=== PATIENT | male | born 1985 | race Caucasian/White ===

== ENCOUNTER 2019-10-24 02:02 | Emergency (ER) | payer BC ==
[2019-10-24 02:11] VITALS: RESP 18; TEMP 98.2
[2019-10-24] MEDS ORDERED: SODIUM CHLORIDE 0.9% 1,000 ML IV STA ×2 (02:16)
--- NOTE | 2019-10-24 02:21 | ED ---
Dizziness HPI - General Chief Complaint: Syncope Stated Complaint: near syncope Time Seen by Provider: 10/24/19 02:16 Source: patient, EMS, RN notes reviewed, old records reviewed Mode of arrival: EMS Limitations: no limitations - History of Present Illness Initial Comments: This is a 33-year-old male DF for evaluation patient presents today for evaluat ion of syncopal event. Patient has no nausea vomiting felt weak and diarrhea. Not feeling well. Patient denying any symptoms currently but states he felt weak and lightheaded all watching TV when upstairs and passed out for his EMS was called. Patient any headache chest pain shortness breath or abdominal pain. He does have history of seizure but that was due to a head injury no seizure medications no recurrent seizures, no seizure-like activity grace VALDEZ Complaint: dizziness, lightheadedness -: minutes(s) Timing: gradual onset Description: lightheadedness, nausea History of Same: No History of Trauma: Yes Severity: moderate Improves With: remaining still Worsens With: movement, exertion Associated Symptoms: malaise, weakness - Related Data Allergies Allergy/AdvReac Type Severity Reaction Status Date / Time No Known Allergies Allergy Verified 10/24/19 02:20 Review of Systems ROS Statement: Those systems with pertinent positive or pertinent negative responses have been documented in the HPI. ROS Other: All systems not noted in ROS Statement are negative. Past Medical History Past Medical History: Seizure Disorder History of Any Multi-Drug Resistant Organisms: None Reported Past Surgical History: Appendectomy Past Psychological History: No Psychological Hx Reported Smoking Status: Current every day smoker Past Alcohol Use History: Rare Past Drug Use History: Marijuana General Exam Limitations: no limitations General appearance: alert, in no apparent distress Head exam: Present: atraumatic, normocephalic, normal inspection Eye exam: Present: normal appearance, PERRL, EOMI. Absent: scleral icterus, conjunctival injection, periorbital swelling ENT exam: Present: normal exam, mucous membranes moist Neck exam: Present: normal inspection. Absent: tenderness, meningismus, lymphadenopathy Respiratory exam: Present: normal lung sounds bilaterally. Absent: respiratory distress, wheezes, rales, rhonchi, stridor Cardiovascular Exam: Present: regular rate, normal rhythm, normal heart sounds. Absent: systolic murmur, diastolic murmur, rubs, gallop, clicks GI/Abdominal exam: Present: soft, normal bowel sounds. Absent: distended, tenderness, guarding, rebound, rigid Extremities exam: Present: normal inspection, full ROM, normal capillary refill. Absent: tenderness, pedal edema, joint swelling, calf tenderness Back exam: Present: normal inspection Neurological exam: Present: alert, oriented X3, CN II-XII intact Psychiatric exam: Present: normal affect, normal mood Skin exam: Present: warm, dry, intact, normal color. Absent: rash Course Vital Signs 10/24/19 02:05 Temperature 98.2 F Pulse Rate 59 L Respiratory 18 Rate Blood Pressure 117/78 O2 Sat by Pulse 98 Oximetry - Reevaluation(s) Reevaluation #1: 10/24/19 03:06 Medical records reviewed Reevaluation #2: 10/24/19 03:06 Patient informed results feels well Reevaluation #3: 10/24/19 03:06 Patient states he feels good for discharge home EKG Findings - EKG Comments: EKG Findings:: EKG is sinus rhythm of 65, WI 134 QRS 78 QTc 451 Medical Decision Making - Medical Decision Making 33-year-old male with 2 days of nausea vomiting diarrhea dizziness syncopal event patient is no acute findings here in the emergency department feels better with IV hydration without complaint of headache chest pain shortness of breath or abdominal pain. Patient can be discharged home - Lab Data Result diagrams: 10/24/19 02:16 10/24/19 02:16 Lab Results 10/24/19 10/24/19 10/24/19 Range/Units 02:16 02:16 02:16 WBC 3.2 L (3.8-10.6) k/uL RBC 4.43 (4.30-5.90) m/uL Hgb 14.1 (13.0-17.5) gm/dL Hct 40.6 (39.0-53.0) % MCV 91.8 (80.0-100.0) fL MCH 31.8 (25.0-35.0) pg MCHC 34.7 (31.0-37.0) g/dL RDW 12.4 (11.5-15.5) % Plt Count 170 (150-450) k/uL PT 10.6 (9.0-12.0) sec INR 1.0 (<1.2) APTT 21.2 L (22.0-30.0) sec Sodium 138 (137-145) mmol/L Potassium 3.4 L (3.5-5.1) mmol/L Chloride 107 (98-107) mmol/L Carbon Dioxide 25 (22-30) mmol/L Anion Gap 6 mmol/L BUN 8 L (9-20) mg/dL Creatinine 0.66 (0.66-1.25) mg/dL Est GFR (CKD-EPI)AfAm >90 (>60 ml/min/1.73 sqM) Est GFR (CKD-EPI)NonAf >90 (>60 ml/min/1.73 sqM) Glucose 116 H (74-99) mg/dL Calcium 8.5 (8.4-10.2) mg/dL Phosphorus 3.1 (2.5-4.5) mg/dL Magnesium 2.0 (1.6-2.3) mg/dL Total Bilirubin 0.6 (0.2-1.3) mg/dL AST 34 (17-59) U/L ALT 28 (4-49) U/L Alkaline Phosphatase 51 (38-126) U/L Creatine Kinase 110 (55-170) U/L Troponin I (0.000-0.034) ng/mL Total Protein 6.5 (6.3-8.2) g/dL Albumin 4.1 (3.5-5.0) g/dL 10/24/19 Range/Units 02:16 WBC (3.8-10.6) k/uL RBC (4.30-5.90) m/uL Hgb (13.0-17.5) gm/dL Hct (39.0-53.0) % MCV (80.0-100.0) fL MCH (25.0-35.0) pg MCHC (31.0-37.0) g/dL RDW (11.5-15.5) % Plt Count (150-450) k/uL PT (9.0-12.0) sec INR (<1.2) APTT (22.0-30.0) sec Sodium (137-145) mmol/L Potassium (3.5-5.1) mmol/L Chloride (98-107) mmol/L Carbon Dioxide (22-30) mmol/L Anion Gap mmol/L BUN (9-20) mg/dL Creatinine (0.66-1.25) mg/dL Est GFR (CKD-EPI)AfAm (>60 ml/min/1.73 sqM) Est GFR (CKD-EPI)NonAf (>60 ml/min/1.73 sqM) Glucose (74-99) mg/dL Calcium (8.4-10.2) mg/dL Phosphorus (2.5-4.5) mg/dL Magnesium (1.6-2.3) mg/dL Total Bilirubin (0.2-1.3) mg/dL AST (17-59) U/L ALT (4-49) U/L Alkaline Phosphatase (38-126) U/L Creatine Kinase (55-170) U/L Troponin I <0.012 (0.000-0.034) ng/mL Total Protein (6.3-8.2) g/dL Albumin (3.5-5.0) g/dL Disposition Clinical Impression: Vasovagal syncope, Dehydration Disposition: HOME SELF-CARE Condition: Good Instructions (If sedation given, give patient instructions): Syncope (ED) Is patient prescribed a controlled substance at d/c from ED?: No Referrals: Madi Wells MD [Primary Care Provider] - 1-2 days
[2019-10-24 02:35] LABS: HCT 40.6 % (39.0-53.0); HGB 14.1 gm/dL (13.0-17.5); MCH 31.8 pg (25.0-35.0); MCHC 34.7 g/dL (31.0-37.0); MCV 91.8 fL (80.0-100.0); Mean Platelet Volume 8.5; Platelet Count 170 k/uL (150-450); RBC 4.43 m/uL (4.30-5.90); RDW 12.4 % (11.5-15.5); WBC 3.2 k/uL (3.8-10.6)
[2019-10-24 02:36] LABS: ALT 28 U/L (4-49); AST 34 U/L (17-59); African American GFR (CKD) >90 (>60 ml/min/1.73 sqM); Albumin 4.1 g/dL (3.5-5.0); Alkaline Phosphatase 51 U/L (38-126); Anion Gap 6 mmol/L; Blood Urea Nitrogen 8 mg/dL (9-20); Calcium 8.5 mg/dL (8.4-10.2); Carbon Dioxide 25 mmol/L (22-30); Chloride 107 mmol/L (98-107); Creatine Kinase 110 U/L (55-170); Glucose 116 mg/dL (74-99); Non-African American GFR(CKD) >90 (>60 ml/min/1.73 sqM); Phosphorus 3.1 mg/dL (2.5-4.5); Sodium 138 mmol/L (137-145); Total Bilirubin 0.6 mg/dL (0.2-1.3); Total Protein 6.5 g/dL (6.3-8.2)
[2019-10-24 02:37] LABS: Potassium 3.4 mmol/L (3.5-5.1)
[2019-10-24 02:43] LABS: Prothrombin Time 10.6 sec (9.0-12.0)
--- NOTE | 2019-10-24 02:51 | XR ---
EXAMINATION TYPE: XR chest 2V DATE OF EXAM: 10/24/2019 COMPARISON: NONE HISTORY: Syncope. Weakness TECHNIQUE: 2 views FINDINGS: Heart and mediastinum are normal. Lungs are clear. Diaphragm is normal. Bony thorax appears normal. IMPRESSION: Normal chest.
[2019-10-24 02:58] LABS: Partial Thromboplastin Time 21.2 sec (22.0-30.0)
[2019-10-24] MEDS ORDERED: NITROGLYCERIN SL TABS 0.4 MG TAB SUBLINGUAL PRN (03:04)
[2019-10-24] MEDS ORDERED: POTASSIUM BICARBONATE/CIT AC 20 MEQ TABLET.EFF PO ONE (03:04)
[2019-10-24 03:48] LABS: Band Neutrophils % 1 %; Eosinophils # (M) 0.06 k/uL (0-0.7); Lymphocytes # (M) 1.95 k/uL (1.0-4.8); Monocytes # (M) 0.13 k/uL (0-1.0); Neutrophils % (M) 32 %; Nucleated Red Blood Cells 0 /100 WBC (0-0); Total Cells Counted 100
[2019-10-24 04:06] VITALS: BP 117/75; PULSE 61
[2019-10-25] MEDS ORDERED: ASPIRIN 325 MG TAB PO SCH (09:00)
== END 2019-10-24 04:08 | disposition home or self-care (01) ==
LOC: EC 02:02
DX: R55 Syncope and collapse (principal); E86.0 Dehydration; F17.200 Nicotine dependence, unspecified, uncomplicated; Z90.89 Acquired absence of other organs; Z86.69 Personal history of other diseases of the nervous system and sense organs
CPT/HCPCS: 36415; 71046; 80053; 82550; 83735; 83880; 84100; 84484; 85025; 85610; 85730; 93005; 96360; 96361; 99285

== ENCOUNTER → 2020-04-17 | Outpatient (CLI) | payer BC ==
--- NOTE | 2020-04-21 14:51 | US ---
EXAMINATION TYPE: US thyroid st tissue head/neck DATE OF EXAM: 04/17/2020 COMPARISON: NONE CLINICAL HISTORY: K11.20 sialoadenitis. Swelling and pain under right mandible that has hence gone a way after antibiotic and steroids. Submandibular gland appears wnl 2 normal appearing lymph nodes within area of past swelling. Normal appearing parotid gland noted also. No obvious abnormality seen. No shadowing calculi are identified. A nonenlarged lymph node is noted. IMPRESSION: 1. Right submandibular gland appears unremarkable.
== END | disposition home or self-care (01) ==
LOC: RADUSWWP 15:46
PROVIDERS: ATTEND Family Medicine
DX: K11.20 Sialoadenitis, unspecified (principal)
CPT/HCPCS: 76536

== ENCOUNTER → 2020-05-31 | Outpatient (CLI) | payer BC ==
--- NOTE | 2020-05-31 10:55 | CT ---
EXAMINATION TYPE: CT soft tissue neck w con DATE OF EXAM: 05/31/2020 HISTORY: Rt submandibular swelling, possible stone. Abnormal x-ray. COMPARISON: Outside mandible x-ray report May 17, 2020 CT DLP: 379 mGycm. Automated Exposure Control for Dose Reduction was Utilized. TECHNIQUE: CT scan of the neck is performed with IV Contrast, patient injected with 100 mL of Isovue 300, axial images are obtained, coronal and sagittal reformatted images are reviewed. FINDINGS: Airway: No gross abnormality seen. Parotid/submandibular glands: Submandibular glands symmetric and within normal limits. Similar findin g to the parotid glands. No surrounding inflammatory change bilaterally. Carotid/Vascular Structures: No suspicious abnormality is seen. Osseous Structures: Slight scoliotic curvature or positioning on coronal images Other: No suspicious mass or adenopathy. Prominent but subcentimeter right submandibular lymph node o n image 52. IMPRESSION: Unremarkable study.
== END | disposition home or self-care (01) ==
LOC: RADCTMAIN 09:58
PROVIDERS: ATTEND Otolaryngology
DX: K11.20 Sialoadenitis, unspecified (principal)
CPT/HCPCS: 70491; Q9967

== ENCOUNTER 2020-07-03 06:44 | Day surgery (SDC) | payer BC ==
[2020-06-28 09:32] VITALS: BMI 26.6
[~2020-07-03 06:44] MED LIST: DEXAMETHASONE SOD PHOSPHATE 4 MG/ML 1 ML VIAL IV ONE; DEXAMETHASONE SOD PHOSPHATE 4 MG/ML 1 ML VIAL IV PRN; FAMOTIDINE 20 MG/2 ML VIAL IV PRN; HYDROmorphone 0.5 MG/0.5 ML SYRINGE IVP PRN; LACTATED RINGERS 1,000 ML IV SCH; LIDOCAINE 1% (10MG/ML) FOR IV START INTRADERMA PRN; ONDANSETRON 4 MG/2 ML VIAL IVP ONE; ONDANSETRON 4 MG/2 ML VIAL IVP PRN
[2020-07-03] MEDS ORDERED: LIDOCAINE 1% (10MG/ML) FOR IV START INTRADERMA ONE (07:38)
[2020-07-03] MEDS ORDERED: MIDAZOLAM 2 MG/2 ML VIAL ONE (08:12)
[2020-07-03] MEDS ORDERED: fentaNYL (PF) 50 MCG/ML 2 ML AMP ONE (08:12)
[2020-07-03] MEDS ORDERED: LIDOCAINE 1% INJ 10MG/ML (20 ML MDV) ONE (08:12)
[2020-07-03] MEDS ORDERED: DEXAMETHASONE SOD PHOSPHATE 10 MG/ML 1 ML VIAL ONE (08:12)
[2020-07-03] MEDS ORDERED: SUCCINYLCHOLINE CHLORIDE 100 MG/5 ML SYR IV ONE (08:12)
[2020-07-03] MEDS ORDERED: PROPOFOL 10 MG/ML 20 ML VIAL IV ONE (08:12)
[2020-07-03] MEDS ORDERED: LIDOCAINE 1%-EPI 1:100,000 20 ML VIAL SUBMUCOSAL ONE (08:34)
--- NOTE | 2020-07-03 09:18 | P.OP ---
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 Postoperative Diagnosis: Same Procedure(s) Performed: right [place] duct sialolithotomy with exploration Anesthesia: JULISA Surgeon: Lorenzo Aguirre Estimated Blood Loss (ml): 5 Pathology: none sent Condition: stable Disposition: PACU Indications for Procedure: This 34-year-old white male with recurrent swelling of the right submandibular gland with eating and drinking computed tomography scan indicated a calculus right [place]'s duct Operative Findings: It was felt that there was a possible palpable calculus in the distal right [place]'s duct on palpation initially however no actual calculus was noted within the Jono's duct on exploration. Description of Procedure: The patient was brought in the operative suite and placed in a supine position. The patient underwent induction of general anesthesia with oral endotracheal intubation without difficulty. The patient was prepped and draped in usual aseptic fashion. The was performed of the floor of mouth with above-noted findings. A 1 cm incision was made over the distal right [place]'s duct. Exploration of the duct was performed including manipulation from proximal to distal in the floor of mouth with good salivary flow from the [place] duct incision. No actual calculus was noted. It was felt that this may have already passed or at the initial incision with suctioning may have been suctioned. No calculus was identified within the aspirate however. Thorough exploration was continued to be performed of the duct with no calculus identified. He did appear that there was good salivary flow and good introduce probes up to a size for without difficulty. Hemostasis was noted to be good. The patient was allowed to emerge from general anesthesia having tolerated procedure well was excised in the operating suite and transferred to postop recovery area in satisfactory condition
[2020-07-03] MEDS: HYDROmorphone 0.5 MG/0.5 ML SYRINGE IVP PRN ×2 (09:29→09:43)
[2020-07-03 09:32] VITALS: TEMP 97.8
[2020-07-03] MEDS ORDERED: LACTATED RINGERS 1,000 ML IV ONE ×2 (09:44)
[2020-07-03 10:14] VITALS: RESP 16
[2020-07-03 10:39] VITALS: BP 131/86; PULSE 65
== END 2020-07-03 10:42 | disposition home or self-care (01) ==
LOC: OR 06:44
PROVIDERS: ATTEND Otolaryngology
DX: K11.20 Sialoadenitis, unspecified (principal); K11.5 Sialolithiasis; Z90.49 Acquired absence of other specified parts of digestive tract; Z81.8 Family history of other mental and behavioral disorders; Z80.0 Family history of malignant neoplasm of digestive organs; F17.200 Nicotine dependence, unspecified, uncomplicated
CPT/HCPCS: 42330; J2250; J1100 ×2; J2405; J2001; J3010; J0330; J2704; J1170